=== PATIENT | female | born 1970 | race American Indian/Alaskan Native ===

== ENCOUNTER 2018-07-16 07:35 | Emergency (ER) | payer OTHER ==
[2018-07-16 07:51] VITALS: BP 98/48
[2018-07-16] MEDS ORDERED: ZOFRAN ODT PO ONE (07:58)
[2018-07-16] MEDS ORDERED: ZOFRAN ODT ONE (07:59)
[2018-07-16 08:08] LABS: Basophils # (Auto) 0.1 K/mm3 (0.0-0.1); Basophils % (Auto) 1.3 % (0.0-1.8); Eosinophils # (Auto) 0.6 K/mm3 (0.0-0.4); Eosinophils % (Auto) 7.8 % (0.0-4.3); Hemoglobin 12.2 gm/dl (10.1-14.3); Lymphocytes # (Auto) 2.5 K/mm3 (1.2-5.4); Lymphocytes % (Auto) 35.3 % (13.4-35.0); Mean Corpuscular HGB Conc 33 % (30-34); Mean Corpuscular Hemoglobin 27 pg (28-32); Mean Corpuscular Volume 82 fl (79-97); Monocytes # (Auto) 0.8 K/mm3 (0.0-0.8); Monocytes % (Auto) 11.2 % (0.0-7.3); Platelet Count 302 K/mm3 (140-440); Red Blood Count 4.52 M/mm3 (3.65-5.03); Red Cell Distribution Width 14.3 % (13.2-15.2)
[2018-07-16] MEDS ORDERED: NACL 0.9% 1000 ML 1,000 ML IV ONE (08:09)
[2018-07-16] MEDS ORDERED: MORPHINE IV ONE (08:11)
[2018-07-16 08:25] LABS: INR 0.84 (0.87-1.13)
[2018-07-16 08:26] LABS: Partial Thromboplastin Time 27.6 Sec. (24.2-36.6)
--- NOTE | 2018-07-16 08:28 | Emergency Department Report ---
ED Abdominal Pain HPI - General Chief Complaint: Abdominal Pain Stated Complaint: VOMIT BLOOD/STOMACH CRAMPS Time Seen by Provider: 07/16/18 08:14 Source: patient, family Mode of arrival: Wheelchair Limitations: No Limitations - History of Present Illness Initial Comments: This is a 47-year-old female nontoxic, well nourished in appearance, no acute signs of distress presents to the ED with c/o of nausea and vomiting and abdominal pain1 day. Patient describes vomiting as food content and dark red emesis. Patient also stated has loose stools. Patient describes abdominal pain as cramping and aching with level of 10/10 diffuse. Patient denies chest pain, short of breath, fever, chills, headache, stiff neck, numbness or tingling. Patient denies any constipation. Patient denies any recent travels. Patient denies any allergies. PMH includes HTN. MD Complaint: abdominal pain -: days(s) (1) Location: diffuse Radiation: none Severity: mild Severity scale (0 -10): 10 Quality: cramping, aching Consistency: constant Improves With: nothing Worsens With: nothing Associated Symptoms: nausea, vomiting, diarrhea, hematemesis. denies: fever, chills, constipation, dysuria, hematochezia, melena, anorexia, syncope - Related Data Previous Rx's Medication Instructions Recorded Last Taken Type Acetaminophen 500 mg PO Q8H PRN #30 tablet 07/16/18 Unknown Rx Ondansetron [Zofran Odt] 4 mg PO Q8HR PRN #20 tab.rapdis 07/16/18 Unknown Rx Allergies Allergy/AdvReac Type Severity Reaction Status Date / Time No Known Allergies Allergy Verified 07/16/18 07:51 ED Review of Systems ROS: Stated complaint: VOMIT BLOOD/STOMACH CRAMPS Other details as noted in HPI Constitutional: denies: chills, fever Eyes: denies: eye pain, eye discharge, vision change ENT: denies: ear pain, throat pain Respiratory: denies: cough, shortness of breath, wheezing Cardiovascular: denies: chest pain, palpitations Endocrine: no symptoms reported Gastrointestinal: abdominal pain, nausea, vomiting, diarrhea, hematemesis. denies: constipation Genitourinary: denies: urgency, dysuria, discharge Musculoskeletal: denies: back pain, joint swelling, arthralgia Skin: denies: rash, lesions Neurological: denies: headache, weakness, paresthesias Psychiatric: denies: anxiety, depression Hematological/Lymphatic: denies: easy bleeding, easy bruising ED Past Medical Hx - Past Medical History Previous Medical History?: Yes Hx Hypertension: Yes Additional medical history: acute pancreatitis - Surgical History Past Surgical History?: Yes Additional Surgical History: hysterectomy - Social History Smoking Status: Former Smoker Substance Use Type: None - Medications Home Medications: Home Medications Medication Instructions Recorded Confirmed Last Taken Type Acetaminophen 500 mg PO Q8H PRN #30 tablet 07/16/18 Unknown Rx Ondansetron [Zofran Odt] 4 mg PO Q8HR PRN #20 tab.rapdis 07/16/18 Unknown Rx ED Physical Exam - General Limitations: No Limitations General appearance: alert, in no apparent distress - Head Head exam: Present: atraumatic, normocephalic - Eye Eye exam: Present: normal appearance - ENT ENT exam: Present: mucous membranes moist - Neck Neck exam: Present: normal inspection - Respiratory Respiratory exam: Present: normal lung sounds bilaterally. Absent: respiratory distress, wheezes, rales, rhonchi, stridor, chest wall tenderness, accessory muscle use, decreased breath sounds, prolonged expiratory - Cardiovascular Cardiovascular Exam: Present: regular rate, normal rhythm, normal heart sounds. Absent: irregular rhythm, systolic murmur, diastolic murmur, rubs, gallop - GI/Abdominal GI/Abdominal exam: Present: soft, tenderness, normal bowel sounds. Absent: distended, guarding, rebound, rigid, diminished bowel sounds, mass, pulsatile mass, hernia - Expanded GI/Abdominal Exam Expanded GI/Abdominal exam: Absent: psoas sign, heel tap sign, Rosenberg's sign, Rovsing's sign, tenderness at Mcburney's Point, ascites - Rectal Rectal exam: Present: deferred, normal inspection, normal rectal tone, heme (-) stool. Absent: decreased rectal tone, heme (+) stool, black stool, bloody stool , fecal impaction, hemorrhoids, mass, tenderness - Extremities Exam Extremities exam: Present: normal inspection, full ROM, normal capillary refill. Absent: tenderness - Back Exam Back exam: Present: normal inspection, full ROM. Absent: tenderness, CVA tenderness (R), CVA tenderness (L), muscle spasm, paraspinal tenderness, vertebral tenderness, rash noted - Neurological Exam Neurological exam: Present: alert, oriented X3, normal gait - Psychiatric Psychiatric exam: Present: normal affect, normal mood - Skin Skin exam: Present: warm, dry, intact, normal color. Absent: rash ED Course Vital Signs 07/16/18 07/16/18 07:47 08:22 Temperature 97.9 F Pulse Rate 53 L 58 L Respiratory 18 20 Rate Blood Pressure 98/48 O2 Sat by Pulse 95 99 Oximetry - Reevaluation(s) Reevaluation #1: 07/16/18 08:30 Patient is speaking in full sentences with no signs of distress noted. ED Medical Decision Making - Lab Data Result diagrams: 07/16/18 07:53 07/16/18 07:53 - EKG Data When compared to previous EKG there are: no significant change Interpretation: no acute changes, normal EKG, other (No signifcant ST abnormalitits.) 07/16/18 10:[address] Laurent - Medical Decision Making This is a 47-year-old female that presents with nausea/vomting and abdominal pain. Patient is stable and was examined by me. There is slight abdominal tenderness. Negative signs of symptoms of appendicitis. Labs obtained. Ct with contrast of abdomen obtained and dictated by the radiologist. Patient is notified of the report with no questions noted by the patient. Vital signs are stable prior to discharge. PAtient 1L normal saline and fluids and morphine in the ED which patient stated symptoms has resolved and subsided. Negative fecal occult exam. A by mouth challenge has been obtained and patient tolerated well with no nausea vomiting. Patient was notified of strict precautions of appendicitis symptoms and to return to the ED if symptoms occurs as soon as possible. Patient was also instructed to Follow-up with a primary care doctor in 3-5 days or if symptoms worsen and continue return to emergency room as soon as possible. At time of discharge, the patient does not seem toxic or ill in appearance. No acute signs of distress noted. Patient agrees to discharge treatment plan of care. No further questions noted by the patient. Critical care attestation.: If time is entered above; I have spent that time in minutes in the direct care of this critically ill patient, excluding procedure time. ED Disposition Clinical Impression: Abdominal pain Qualifiers: Abdominal location: generalized Qualified Code(s): R10.84 - Generalized abdominal pain Nausea & vomiting Qualifiers: Vomiting type: unspecified Vomiting Intractability: non-intractable Qualified Code(s): R11.2 - Nausea with vomiting, unspecified Disposition: DC-01 TO HOME OR SELFCARE Is pt being admited?: No Does the pt Need Aspirin: No Condition: Stable Instructions: Abdominal Pain (ED), Acute Nausea and Vomiting (ED) Additional Instructions: Follow-up with a primary care/rn hemo dialysis doctor in 3-5 days or if symptoms worsen and continue return to emergency room as soon as possible. Prescriptions: Acetaminophen 500 mg PO Q8H PRN #30 tablet PRN Reason: Pain, Moderate (4-6) Ondansetron [Zofran Odt] 4 mg PO Q8HR PRN #20 tab.rapdis PRN Reason: Nausea Referrals: PRIMARY CARE, [Primary Care Provider] - 3-5 Days EDD CARMICHAEL MD [Staff Physician] - 3-5 Days [facility] [Outside] - 3-5 Days [facility] [Provider Group] - 3-5 Days Forms: Work/School Release Form(ED)
[2018-07-16 08:32] LABS: Alanine Aminotransferase 24 units/L (7-56); Albumin 3.8 g/dL (3.9-5); BUN/Creatinine Ratio 13; Blood Urea Nitrogen 10 mg/dL (7-17); Calcium 9.8 mg/dL (8.4-10.2); Hemolysis Index 5; Lipase 29 units/L (13-60)
[2018-07-16] MEDS ORDERED: NACL 0.9% 50 ML ONE (09:08)
--- NOTE | 2018-07-16 10:27 | Cat Scan Report ---
CT ABDOMEN AND PELVIS WITH CONTRAST INDICATION: Abdominal pain, nausea, vomiting. COMPARISON: None similar at this institution. FINDINGS: Abdomen and pelvis CT performed following intravenous administration of 100 cc of Omnipaque 300. LUNG BASES: Top normal heart size. No effusions. Mild nonspecific distal esophageal wall prominence/thickening, not excluded for gastroesophageal reflux and/or hiatal hernia, amongst others. ABDOMEN: Mild diffuse fatty hepatic infiltration within right hepatic lobe approximately 18 cm in midclavicular length. Otherwise grossly unremarkable liver, spleen, gallbladder, pancreas, adrenals, aorta and IVC. Mildly lobulated renal contours. No hydronephrosis. Couple of subcentimeter, indeterminate right renal cortical hypodensities. A 3 mm nonobstructing right upper renal pole calculus on axial image 70, series 2 as well. No ascites or size significant adenopathy. Nonopacified GI tract evaluation limited, though grossly nonobstructive. Normal appendix. Few descending colon diverticuli. PELVIS: Uterus surgically absent. Grossly unremarkable urinary bladder and the rectosigmoid. No free fluid or significant adenopathy. Mild multilevel spinal degenerative spurring. Mild mid to lower lumbar facet arthropathy. Slight SI joint sclerosis, more so on the right. A 0.9 cm sclerotic focus in the sacrum on the right also incidentally noted. CONCLUSION: 1. Fatty, slightly enlarged liver without acute CT abnormality, as described. 2. Various other findings as small nonobstructing right renal calculus, diverticulosis and hysterectomy, amongst others, as detailed above. Thank you for the opportunity to participate in this patient's care.
[2018-07-16 11:31] LABS: Bilirubin,Urine NEG (Negative); Blood,Urine NEG (Negative); Color,Urine Yellow (Yellow); Mucus,Urine FEW /HPF; Protein,Urine <15 mg/dL mg/dL (Negative); RBC,Urine < 1.0 /HPF (0.0-6.0); Urobilinogen,Urine < 2.0 mg/dL (<2.0)
== END 2018-07-16 11:04 | disposition home or self-care (01) ==
LOC: ED 07:35
DX: R10.84 Generalized abdominal pain (principal); R11.2 Nausea with vomiting, unspecified; I10 Essential (primary) hypertension; Z90.710 Acquired absence of both cervix and uterus; Z87.19 Personal history of other diseases of the digestive system; Z87.891 Personal history of nicotine dependence
CPT/HCPCS: 36415; 74177; 80053; 81001; 82271; 83690; 85025; 85610; 85730; 86850; 86900; 86901; 87086; 93005; 93010; 96361; 96374; 99284; J2270; J7030; Q9967; Q0162